=== PATIENT | male | born 1995 ===

== ENCOUNTER 2020-09-09 13:44 | Emergency (ER) | payer SELFPAY | END 2020-09-09 13:45 | disposition left against medical advice (07) | LOC: ED 13:44 | DX: Z53.21 Procedure and treatment not carried out due to patient leaving prior to being seen by health care provider (principal) ==

== ENCOUNTER 2020-10-27 20:26 | Emergency (ER) | payer SELFPAY ==
[2020-10-27 21:44] LABS: Bilirubin,Urine NEG (Negative); Blood,Urine NEG (Negative); Color,Urine Yellow (Yellow); Mucus,Urine 3+ /HPF
[2020-10-27] MEDS ORDERED: DOXYCYCLINE 100 MG CAP PO ONE (23:42)
[2020-10-27] MEDS ORDERED: LIDOCAINE-MPF (1%) 10 MG/1 ML VIAL 5 ML INFILTRATI ONE (23:42)
--- NOTE | 2020-10-27 23:48 | Emergency Department Report ---
ED General Adult HPI - General Chief complaint: Urogenital-Male Stated complaint: POSS STD Time Seen by Provider: 10/27/20 23:25 Source: patient Mode of arrival: Ambulatory Limitations: No Limitations - History of Present Illness Initial comments: 24-year-old male patient presents emergency department with complaints of painful urination and penile discharge for 2 days. Patient states symptoms are reminiscent of prior chlamydia infection. He has been engaging in unprotected sexual intercourse. States his girlfriend is also undergoing STD testing. No current antibiotic use. Denies fever, chills, abdominal pain, pelvic pain, rash, testicular pain/swelling, hematuria. Denies all other complaints at this time. Severity scale (0 -10): 0 - Related Data Previous Rx's Medication Instructions Recorded Last Taken Type Doxycycline Hyclate 100 mg PO BID 7 Days tablet. 10/27/20 Unknown Rx Allergies Allergy/AdvReac Type Severity Reaction Status Date / Time No Known Allergies Allergy Unverified 10/27/20 21:10 ED Review of Systems ROS: Stated complaint: POSS STD Other details as noted in HPI Other: GENERAL: Negative for fever. CARDIOVASCULAR: Negative for chest pain. PULMONARY: Negative for shortness of breath. GASTROINTESTINAL: Negative for abdominal pain. GENITOURINARY: Positive for penile discharge and painful urination. MUSCULOSKELETAL: Negative for back pain. NEUROLOGICAL: Negative for headache. INTEGUMENTARY: Negative for rash. ED Past Medical Hx - Past Medical History Previous Medical History?: No - Surgical History Past Surgical History?: Yes Additional Surgical History: big toe - Medications Home Medications: Home Medications Medication Instructions Recorded Confirmed Last Taken Type Doxycycline Hyclate 100 mg PO BID 7 Days tablet. 10/27/20 Unknown Rx ED Physical Exam - General Limitations: No Limitations - Other Other exam information: General: Awake, appropriately interactive, no acute distress. Neck: Supple. Full range of motion intact. Cardiovascular: Normal peripheral perfusion. Pulmonary: No respiratory distress. Patient is speaking normally without use of accessory muscles. Skin: No apparent rashes or lesions. Neurological: No facial asymmetry. Speech is clear. Follows commands. Patient is alert and oriented. Musculoskeletal: Moves all four extremities spontaneously with normal range of motion. Psych: Cooperative. Appropriate mood and affect. ED Course Vital Signs 10/27/20 21:06 Temperature 98.1 F Pulse Rate 72 Respiratory 16 Rate Blood Pressure 128/57 [Left] O2 Sat by Pulse 100 Oximetry ED Medical Decision Making - Medical Decision Making Patient presents to the emergency department requesting STD testing. Urinalysis shows significant pyuria. He is afebrile, hemodynamically stable, no distress. Abdominal exam is benign. It was explained to the patient that STD testing is not routinely performed on males in the emergency department. However, he will be treated empirically per CDC guidelines and referred to both primary care provider and health department for close outpatient follow-up. Emphasized the importance of using barrier protection when engaging in sexual intercourse and following up for outpatient confirmatory testing. Patient expressed understanding and is agreeable to plan of care. Strict return precautions provided. History, exam, diagnostic testing, and current condition do not suggest worrisome pathology to warrant further testing, continued ED treatment, admission, or surgical evaluation at this point. Given the low probability of a significant medical illness, it would be more likely to result in harm than benefit to perform further testing at this stage. Discussed findings, presumptive diagnosis, need for follow-up and specific signs/symptoms that should prompt immediate return to the emergency department. Instructions were explained in detail to the patient in addition to giving written discharge information. Patient expressed understanding and was given the opportunity to ask questions, all of which were satisfactorily answered prior to discharge home. Critical care attestation.: If time is entered above; I have spent that time in minutes in the direct care of this critically ill patient, excluding procedure time. ED Disposition Clinical Impression: Nonspecific urethritis Disposition: DC-01 TO HOME OR SELFCARE Is pt being admited?: No Does the pt Need Aspirin: No Condition: Stable Instructions: Urethritis, Adult Additional Instructions: Take Doxycycline with food as directed. Avoid prolonged sun exposure while taking this medication. Increase your dietary intake of probiotic rich foods while taking this medication. Use barrier protection when engaging in sexual intercourse. Follow-up with primary care provider and/or [facility] for confirmatory testing. See referral information below. Return to the emergency department immediately for new or worsening symptoms. Prescriptions: Doxycycline Hyclate 100 mg PO BID 7 Days tablet. Referrals: [facility] [Outside] - 3-5 Days PADMINI MENDOZA MD [Staff Physician] - 3-5 Days [facility] [Provider Group] - 3-5 Days Forms: STI Treatment and Prevention Time of Disposition: 23:48
[2020-10-28 01:31] VITALS: BP 122/62
== END 2020-10-28 01:33 | disposition home or self-care (01) ==
LOC: ED 20:26
DX: N34.1 Nonspecific urethritis (principal); Z79.899 Other long term (current) drug therapy; Z98.890 Other specified postprocedural states
CPT/HCPCS: 81001; 87086; 96372; 99283; J0696

== ENCOUNTER 2020-11-23 00:14 | Emergency (ER) | payer SELFPAY ==
[2020-11-23 01:53] VITALS: BP 109/53
--- NOTE | 2020-11-23 03:56 | Emergency Department Report ---
ED General Adult HPI - General Chief complaint: Urogenital-Male Stated complaint: DISCHARGE/BURNING URINATION PUI?: No Time Seen by Provider: 11/23/20 03:55 Source: patient, RN notes reviewed, old records reviewed Mode of arrival: Ambulatory Limitations: No Limitations - History of Present Illness Initial comments: This is a 25-year-old gentleman. He presents to the ER today with complaint of persistent dysuria, and urinary discomfort. He denies testicular pain. He was seen in this department this month for similar complaint, given ceftriaxone IM injection, and discharged with doxycycline. Urine cultures were negative. He has been noncompliant with his doxycycline. He continues to have high risk sexual encounters without condoms. He denies headache, neck pain, chest pain, abdominal pain, shortness of breath, vomiting. -: Gradual, days(s) Consistency: intermittent Improves with: none Worsens with: other (Dysuria worsens with urination) - Related Data Previous Rx's Medication Instructions Recorded Last Taken Type Doxycycline Hyclate 100 mg PO BID 7 Days tablet. 11/23/20 Unknown Rx Phenazopyridine [Pyridium] 100 mg PO TID PRN #6 tab 11/23/20 Unknown Rx Allergies Allergy/AdvReac Type Severity Reaction Status Date / Time No Known Allergies Allergy Unverified 10/27/20 21:10 ED Review of Systems ROS: Stated complaint: DISCHARGE/BURNING URINATION Other details as noted in HPI Constitutional: denies: fever Eyes: denies: eye discharge ENT: denies: epistaxis Respiratory: denies: cough Cardiovascular: denies: chest pain Gastrointestinal: denies: abdominal pain Genitourinary: dysuria. denies: testicular pain Neurological: denies: weakness ED Past Medical Hx - Surgical History Additional Surgical History: big toe - Medications Home Medications: Home Medications Medication Instructions Recorded Confirmed Last Taken Type Doxycycline Hyclate 100 mg PO BID 7 Days tablet. 11/23/20 Unknown Rx Phenazopyridine [Pyridium] 100 mg PO TID PRN #6 tab 11/23/20 Unknown Rx ED Physical Exam - General Limitations: No Limitations General appearance: alert, in no apparent distress - Head Head exam: Present: atraumatic, normocephalic - Eye Eye exam: Present: normal appearance, EOMI. Absent: nystagmus - ENT ENT exam: Present: normal exam, normal orophraynx, mucous membranes moist, normal external ear exam - Neck Neck exam: Present: normal inspection, full ROM. Absent: tenderness, meningismus - Respiratory Respiratory exam: Present: normal lung sounds bilaterally. Absent: respiratory distress, wheezes, rales, rhonchi, stridor, chest wall tenderness - Cardiovascular Cardiovascular Exam: Present: regular rate, normal rhythm, normal heart sounds. Absent: bradycardia, tachycardia, irregular rhythm, systolic murmur, diastolic murmur, rubs, gallop - GI/Abdominal GI/Abdominal exam: Present: soft. Absent: distended, tenderness, guarding, rebound, rigid, pulsatile mass - Rectal Rectal exam: Present: deferred - Extremities Exam Extremities exam: Present: normal inspection, full ROM. Absent: pedal edema - Back Exam Back exam: Present: normal inspection. Absent: tenderness, CVA tenderness (R), CVA tenderness (L), paraspinal tenderness, vertebral tenderness - Neurological Exam Neurological exam: Present: alert, other (No facial droop. Tongue midline. Extraocular movements intact bilaterally. Facial sensation intact to light touch in V1, V2, V3 distribution bilaterally. 5 and a 5 strength in 4 extremities. Sensation intact to light touch in 4 extremities.). Absent: motor sensory deficit - Psychiatric Psychiatric exam: Present: normal affect, normal mood - Skin Skin exam: Present: warm, dry, intact, normal color. Absent: rash ED Course Vital Signs 11/23/20 01:51 Temperature 97.9 F Pulse Rate 63 Respiratory 20 Rate Blood Pressure 109/53 O2 Sat by Pulse 98 Oximetry ED Medical Decision Making - Lab Data Vital Signs 11/23/20 01:51 Temperature 97.9 F Pulse Rate 63 Respiratory 20 Rate Blood Pressure 109/53 O2 Sat by Pulse 98 Oximetry Prior laboratory studies and culture results are reviewed. - Medical Decision Making Differential diagnosis, including but not limited to: Urethritis, gonococcal versus chlamydial, noncompliance, high risk sexual behavior. Assessment and plan: 25-year-old gentleman, who is afebrile with reassuring vital signs, clinically sober, with a GCS of 15, walking with a steady gait, with a complaint of persistent dysuria, in the context of probable STI urethritis. He has already been medicated previously with ceftriaxone. He has been noncompliant with his doxycycline. He reports multiple sexual partners, and not using condoms. Counseled patient to avoid sexual contacts at this time, to always wear condoms, to complete antibiotic course, and to follow-up as an outpatient with the health department. Patient does not appear to have an emergent medical condition present at this time. He is resting comfortably, speaking on his cell phone, and does not appear to be in any acute distress. Appropriate counseling provided. Return precautions are reviewed. Critical care attestation.: If time is entered above; I have spent that time in minutes in the direct care of this critically ill patient, excluding procedure time. ED Disposition Clinical Impression: Noncompliance, High risk sexual behavior, History of urethritis Disposition: DC TO HOME OR SELFCARE Is pt being admited?: No Does the pt Need Aspirin: No Condition: Stable Instructions: Safe Sex, Preventing HIV Infection and AIDS Additional Instructions: Cultures were sent today, and results will be available next 3-5 days. Please have your primary care doctor call the medical records department to obtain your culture results. Take the antibiotic therapy as directed. Take the antibiotics and pain medication as directed. Do not consume alcohol. I recommend outpatient testing for sexually transmitted diseases, including hepatitis, syphilis and HIV. I also recommend that you abstain from sexual a ctivity until you have completed her antibiotic therapy, a physician states that it is safe for you to resume sexual activity, and any partners that you have been sexually active with have been tested/treated/evaluated for sexual transmitted diseases. Please follow-up with physician within 3-5 days. I recommend that you return to the ER right away with worsening pain, migration of pain, intractable nausea/vomiting, inability tolerate liquid feeds. Prescriptions: Doxycycline Hyclate 100 mg PO BID 7 Days tablet. Phenazopyridine [Pyridium] 100 mg PO TID PRN #6 tab PRN Reason: Pain , Severe (7-10) Referrals: [facility] [Outside] - 3-5 Days [facility] [Provider Group] - 3-5 Days
== END 2020-11-23 04:49 | disposition home or self-care (01) ==
LOC: ED 00:14
DX: R30.9 Painful micturition, unspecified (principal); Z91.19 Patient's noncompliance with other medical treatment and regimen; Z72.51 High risk heterosexual behavior; Z87.448 Personal history of other diseases of urinary system; Z79.899 Other long term (current) drug therapy
CPT/HCPCS: 99282